=== PATIENT | male | born 1950 ===

== ENCOUNTER 2017-08-29 12:54 | Outpatient (CLI) | payer OTHER | END 2017-08-29 15:00 | disposition home or self-care (01) | LOC: LAB 12:54 | DX: R97.21 Rising PSA following treatment for malignant neoplasm of prostate (principal) ==

== ENCOUNTER 2017-09-11 14:42 | Outpatient (CLI) | payer OTHER | END 2017-09-11 15:25 | disposition home or self-care (01) | LOC: LAB 14:42 | DX: E03.9 Hypothyroidism, unspecified (principal) ==